=== PATIENT | male | born 1975 ===

== ENCOUNTER 2018-03-25 13:59 | Emergency (ER) | payer SELFPAY ==
--- NOTE | 2018-03-25 15:07 | C.PDOC ---
History Of Present Illness 43 year old male patient presents to the ER with c/o right arm, shoulder and elbow pain. S/p fall from ladder x6 days ago. Patient reports he landed on right side. Patient had a small puncture wound with a small piece of metal which patient removed himself. Patient reports Tylenol did not bring relief. Patient denies head trauma or LOC. Chief Complaint (Nursing): Abnormal Skin Integrity History Per: Patient History/Exam Limitations: no limitations Onset/Duration Of Symptoms: Days (x6) Current Symptoms Are (Timing): Still Present Location Of Injury: Right: Arm, Elbow, Shoulder Past Medical History Reviewed: Historical Data, Nursing Documentation, Vital Signs Vital Signs: Last Vital Signs Temp 98.6 F 03/25/18 16:37 Pulse 65 03/25/18 16:37 Resp 14 03/25/18 16:37 BP 117/73 03/25/18 16:37 Pulse Ox 98 03/25/18 16:37 Surgical History: Appendectomy Family History: States: No Known Family Hx - Social History Hx Alcohol Use: No Hx Substance Use: No - Immunization History Hx Tetanus Toxoid Vaccination: No Hx Influenza Vaccination: No Hx Pneumococcal Vaccination: No Review Of Systems Except As Marked, All Systems Reviewed And Found Negative. Constitutional: Negative for: Other (head trauma) Musculoskeletal: Positive for: Shoulder Pain (right), Arm Pain (right; right elbow pain) Neurological: Negative for: Dizziness, Other (LOC) Physical Exam - Physical Exam Appears: Non-toxic, No Acute Distress Skin: Normal Color, Warm, Dry Head: Atraumatic, Normacephalic Neck: Normal ROM, Supple Extremity: No Normal ROM (decrease ROM ), Tenderness (right shoulder and elbow ) , Swelling (right elbow ), Other (unable to touch left shoulder with right hand ; unable to lift arm above head; redness ) Pulses: Left Radial: Normal, Right Radial: Normal Neurological/Psych: Oriented x3, Normal Speech ED Course And Treatment O2 Sat by Pulse Oximetry: 97 (RA) Pulse Ox Interpretation: Normal - Other Rad R elbow X-Ray: Read By Radiologist Interpretation: Accession No. : [id number]. Patient Name / ID : LYNETTE ALDRICH / [id number]. Exam Date : 03/25/2018 15:28:58 ( Approved ). Study Comment : Sex / Age : M / 43Y. Creator : Jerry Andres MD. Dictator : Jerry Andres MD. Burlap Worker : Cytology Supervisor : Jerry Andres MD. Approver2 : Report Date : 03/25/2018 15:42:50. My Comment : . Date of service: 03/25/2018. PROCEDURE: Radiographs of the right elbow. HISTORY: fall. COMPARISON: No prior. FINDINGS: BONES: Normal. No fracture. JOINTS: Normal. No osteoarthritis. SOFT TISSUES: Normal. JOINT EFFUSION: None. OTHER FINDINGS: None. IMPRESSION: Unremarkable radiographs of the right elbow. R humerus X-Ray: Read By Radiologist Interpretation: Accession No. : [id number]. Patient Name / ID : LYNETTE ALDRICH / [id number]. Exam Date : 03/25/2018 15:29:16 ( Approved ). Study Comment : Sex / Age : M / 43Y. Creator : Jerry Andres MD. Dictator : Jerry Andres MD. Burlap Worker : Cytology Supervisor : Jerry Andres MD. Approver2 : Report Date : 03/25/2018 15:42:33. My Comment : . PROCEDURE: Radiographs of the right humerus. HISTORY: r/o Fx. COMPARISON: None. FINDINGS: BONES: Normal. No fracture or focal lesion. SOFT TISSUES: Normal. OTHER FINDINGS: None. IMPRESSION: Normal radiographs of right humerus R shoulder X-Ray: Read By Radiologist Interpretation: Accession No. : [id number]. Patient Name / ID : LYNETTE ALDRICH / [id number]. Exam Date : 03/25/2018 15:29:30 ( Approved ). Study Comment : Sex / Age : M / 43Y. Creator : Jerry Andres MD. Dictator : Jerry Andres MD. Burlap Worker : Cytology Supervisor : Jerry Andres MD. Approver2 : Report Date : 03/25/2018 15:42:06. My Comment : . Date of service: 03/25/2018. PROCEDURE: Radiographs of the Right Shoulder. HISTORY: fall. COMPARISON: No prior. FINDINGS: BONES: Normal. No fracture. JOINTS : Normal. Glenohumeral and acromioclavicular joints preserved. No osteoarthritis. SOFT TISSUES: Normal. OTHER FINDINGS: None. IMPRESSION: Normal radiographs of the right shoulder. Medical Decision Making Medical Decision Making: Impression: fall injury r/o shoulder and elbow fx; cellulitis Plans: -- ibuprofen -- XR right shoulder -- XR right humerus -- XR right elbow Disposition - Disposition Referrals: [facility] [place] [facility] [place] [facility] at [facility] [Outside] [facility] at [place] [Outside] Disposition: HOME/ ROUTINE Disposition Time: 16:53 Condition: GOOD Prescriptions: Cephalexin [Keflex] 500 mg PO Q8 #21 capsule Ibuprofen [Motrin] 600 mg PO Q6 #20 tab Instructions: Cellulitis (Skin Infection), Adult (DC) Forms: [employer] (Libyan) - Clinical Impression Clinical Impression: Cellulitis - Scribe Statement The provider has reviewed the documentation as recorded by the Scribharper Rizo Do Provider Attestation: All medical record entries made by the Scribe were at my direction and personally dictated by me. I have reviewed the chart and agree that the record accurately reflects my personal performance of the history, physical exam, medical decision making, and the department course for this patient. I have also personally directed, reviewed, and agree with the discharge instructions and disposition.
--- NOTE | 2018-03-25 15:43 | RAD ---
Date of service: 03/25/2018 PROCEDURE: Radiographs of the Right Shoulder HISTORY: fall COMPARISON: No prior. FINDINGS: BONES: Normal. No fracture. JOINTS: Normal. Glenohumeral and acromioclavicular joints preserved. No osteoarthritis. SOFT TISSUES: Normal. OTHER FINDINGS: None. IMPRESSION: Normal radiographs of the right shoulder.
--- NOTE | 2018-03-25 15:44 | RAD ---
PROCEDURE: Radiographs of the right humerus. HISTORY: r/o Fx COMPARISON: None. FINDINGS: BONES: Normal. No fracture or focal lesion. SOFT TISSUES: Normal. OTHER FINDINGS: None. IMPRESSION: Normal radiographs of right humerus.
--- NOTE | 2018-03-25 15:44 | RAD ---
Date of service: 03/25/2018 PROCEDURE: Radiographs of the right elbow. HISTORY: fall COMPARISON: No prior. FINDINGS: BONES: Normal. No fracture. JOINTS: Normal. No osteoarthritis. SOFT TISSUES: Normal. JOINT EFFUSION: None. OTHER FINDINGS: None. IMPRESSION: Unremarkable radiographs of the right elbow.
[2018-03-25] MEDS ORDERED: Tdap Vaccine 0.5 ml Vial (10-64 yrs) IM ONE ×2 (16:31→16:50)
[2018-03-25 16:37] VITALS: BP 117/73; PULSE 65; RESP 14; TEMP 98.6
[2018-03-28 21:43] VITALS: O2SAT 97
== END 2018-03-25 16:53 | disposition home or self-care (01) ==
LOC: C.ER 13:59
DX: L03.113 Cellulitis of right upper limb (principal)